=== PATIENT | female | born 1995 | race Caucasian/White ===

== ENCOUNTER → 2016-11-18 | Outpatient (CLI) | payer OTHER ==
--- NOTE | 2016-11-19 08:23 | RAD ---
EXAM DESCRIPTION: Chest,2 Views CLINICAL HISTORY: CHEST PAIN COMPARISON: None available FINDINGS: The cardiomediastinal silhouette is unremarkable. There is no airspace consolidation or pleural effusion. The bronchovascular markings are within normal limits, and the lungs are not hyperinflated. There is no pneumothorax or acute fracture. IMPRESSION: Negative exam. Electronically signed by: Reynold Car MD 11/19/2016 8:22 AM CDT Workstation: [facility]
== END ==
LOC: LAB.O 12:01
PROVIDERS: ATTEND Obstetrics & Gynecology
DX: R07.9 Chest pain, unspecified (principal); O99.013 Anemia complicating pregnancy, third trimester; Z3A.27 27 weeks gestation of pregnancy

== ENCOUNTER 2016-11-19 12:42 | Emergency (ER) | payer OTHER ==
[2016-11-19 13:20] VITALS: TEMP 98.5
[2016-11-19] MEDS ORDERED: POTASSIUM CHLORIDE ELIXIR 20 MEQ/15 ML UD PO ONE (13:46)
[2016-11-19] MEDS ORDERED: MAGNESIUM SULFATE PREMIX 2GM 2 GM in PREMIX BAG 1 BAG IVPB ONE (13:46)
[2016-11-19] MEDS ORDERED: MAGNESIUM SULFATE PREMIX 2GM 50 ML IVPB ONE (13:56)
[2016-11-19] MEDS ORDERED: PANTOPRAZOLE SODIUM TAB 40 MG PO ONE (15:25)
[2016-11-19] MEDS ORDERED: SUCRALFATE 1 GM/10 ML 1 GM UD PO ONE (15:25)
--- NOTE | 2016-11-19 16:29 | ED.PDOC ---
History of Present Illness - General Chief Complaint: Respiratory Problem Stated Complaint: Shortness of breath Time Seen by Provider: 11/19/16 12:52 Source: patient Exam Limitations: no limitations - History of Present Illness Initial Comments: The patient is a 20-year-old female presenting to the emergency room secondary to symptoms of palpitations along with some chest pressure and shortness of breath. The patient has had multiple episodes on the order of around 10 episodes per day for the last few weeks. She does have a history of gastritis as she has had some significant intolerance to her vitamins. The patient was obviously having a fatty attack upon arrival here. The patient had just finished and turned and a Holter monitor and she reports that she did have a few episodes while she was wearing a Holter monitor. No history of any cardiac arrhythmias in the past. No history of mitral valve prolapse. The patient is approximately 7 months according to her. No vaginal bleeding. The child is moving well. No loss of fluids. No fevers. No shortness of breath. She reports that the episodes last anywhere from less than a minute to 10-15 minutes. She does feel short of breath. No syncope but she did almost pass out today according to her. The episode today occurred while she was walking in [facility]. Episodes have occurred while she has been sitting still as well. Her first episode she noted was last January. The episodes have become more frequent. No leg pain. Vital signs are good here except she is in a sinus tachycardia and she is very upset at the moment. She is oxygenating well without supplemental oxygen. Timing/Duration: unsure Severity: moderate Improving Factors: nothing Worsening Factors: nothing Associated Symptoms: chest pain, shortness of breath Allergies/Adverse Reactions: Allergies NO KNOWN ALLERGY Allergy (Verified 11/19/16 13:18) Home Medications: Ambulatory Orders Famotidine 20 mg PO BID #30 tab 11/19/16 Ferrous Sulfate [Iron] 65 mg PO DAILY 11/19/16 Review of Systems - Review of Systems Constitutional: States: no symptoms reported EENTM: States: no symptoms reported Respiratory: States: short of breath Cardiology: States: palpitations Gastrointestinal/Abdominal: States: no symptoms reported Genitourinary: States: no symptoms reported Musculoskeletal: States: no symptoms reported Skin: States: no symptoms reported Neurological: States: anxiety Endocrine: States: no symptoms reported All other Systems: No Change from Baseline Past Medical History (General) - Patient Medical History Hx Stroke: No Hx Asthma: Yes Hx Congestive Heart Failure: No Hx Diabetes: No Hx Cancer: Yes - melanoma Hx Hepatitis C: No Hx MRSA: Yes - Back 2012 MRSA Source:: Wound - Vaccination History Hx Influenza Vaccination: No Hx Pneumococcal Vaccination: No - Social History Hx Tobacco Use: Yes Hx Alcohol Use: Yes Hx Substance Use: No Hx Substance Use Treatment: No Hx Depression: No - Female History Patient is a Female of Child Bearing Age (10 -59 yrs old): Yes Patient : Yes - 7 months Family Medical History - Family History Mother Family History: No Known Living Status: Still Living Physical Exam - Physical Exam General Appearance: Alert, Anxious Eye Exam: bilateral normal Ears, Nose, Throat: hearing grossly normal, normal ENT inspection, normal pharynx Neck: non-tender, full range of motion, supple Respiratory: chest non-tender, lungs clear, normal breath sounds, no respiratory distress, no accessory muscle use Cardiovascular/Chest: normal peripheral pulses, no edema, other - inus tachycardia initially Peripheral Pulses: radial,right: 2+, radial,left: 2+, dorsalis pedis,right: 2+, dorsalis pedis,left: 2+ Gastrointestinal/Abdominal: normal bowel sounds, non tender - ., soft Rectal Exam: deferred Back Exam: normal inspection, no CVA tenderness, no vertebral tenderness Extremity: normal range of motion, non-tender, normal inspection, no pedal edema , no calf tenderness, normal capillary refill Neurologic: kitchen hand II-XII nml as tested, no motor/sensory deficits, alert, oriented x 3, other - he patient presents an anxiety attack Skin Exam: normal color Comments: Vital Signs - 24 hr 11/19/16 11/19/16 11/19/16 12:42 13:18 13:19 Temperature 98.5 F Pulse Rate [ 110 H 86 88 Apical] Respiratory 22 22 22 Rate Blood Pressure 149/100 131/81 123/65 [Left Arm] O2 Sat by Pulse 99 97 95 Oximetry 11/19/16 13:20 Temperature Pulse Rate [ 113 H Apical] Respiratory 22 Rate Blood Pressure 134/89 [Left Arm] O2 Sat by Pulse 97 Oximetry Progress - Progress Progress: 11/19/16 16:32 the patient is a 20-year-old female at approximately 7 months gestational age presenting with symptoms of palpitations. The patient definitely has anxiety and was having an anxiety attack upon arrival. She is starting a medication from her primary care doctor for that today actually. The patient also has a low magnesium level and was given 2 g of magnesium here today. She does need to be followed for this and if this persists she may need to start a supplement. Additionally her potassium was low normal here today. She was given some supplemental potassium here today and this also needs to be followed. The patient needs to keep well-hydrated. Repeat cardiac enzymes are negative at this time. She does have a moderately elevated white blood cell count 18,000. This also needs to be repeated. I do not see any definitive source of infection at this time to warrant antibiotics. She is not septic. It is recommended that the patient stay for telemetry monitoring in case the episodes are actually due to an arrhythmia. She has deferred this at this time. It is possible her symptoms may be coming from gastritis and esophagitis. She will empirically be placed on Pepcid twice daily for 2 weeks only. She does need follow-up with her primary care doctor early next week to obtain the results of her Holter monitor. ER warnings were given for any significant recurrence. - Results/Orders Results/Orders: 11/19/16 13:04 Telemetry .CONTINUOUS normal sinus rhythm to sinus tachycardia Vital Signs-Tilt PRN 11/19/16 13:15 EKG STAT sinus tachycardia at a rate of 101 bpm. Old T-wave inversions in lead 3 and aVF when compared to EKG from 2 years ago. Normal R-wave progression. No short PA or long QT noted. Laboratory Results - last 24 hr 11/19/16 11/19/16 11/19/16 13:15 13:15 13:15 WBC 18.5 H RBC 3.83 L Hgb 11.6 L Hct 33.5 L MCV 87.4 MCH 30.2 MCHC 34.5 RDW 13.3 Plt Count 243 MPV 7.8 Absolute Neuts (auto) 15.50 H Absolute Lymphs (auto) 1.90 Absolute Monos (auto) 0.80 Absolute Eos (auto) 0.20 Absolute Basos (auto) 0.10 Neutrophils % 83.9 H Lymphocytes % 10.4 L Monocytes % 4.5 Eosinophils % 0.8 L Basophils % 0.4 PT 10.5 INR 0.930 PTT (SP) 24.3 L Sodium 137 Potassium 3.5 L Chloride 107 Carbon Dioxide 20 L Anion Gap 13.5 BUN 10 Creatinine 0.81 BUN/Creatinine Ratio 12.3 Random Glucose 124 H Serum Osmolality 274.3 L Calcium 9.4 Magnesium Total Bilirubin 0.4 AST 15 ALT 15 Alkaline Phosphatase 71 L Creatine Kinase 21 L CK-MB (CK-2) 0.5 CK-MB (CK-2) % Not Reportable Troponin I < 0.02 B-Natriuretic Peptide 35.8 Serum Total Protein 6.7 Albumin 3.3 Globulin 3.4 Albumin/Globulin Ratio 1.0 L Amylase 69 Lipase TSH Urine Color Urine Appearance Urine pH Ur Specific [place] Urine Protein Urine Glucose (UA) Urine Ketones Urine Blood Urine Nitrite Urine Bilirubin Urine Urobilinogen Ur Leukocyte Esterase Urine RBC Urine WBC Ur Epithelial Cells Amorphous Sediment Urine Bacteria Urine Mucus Urine Opiates Screen Urine Barbiturates Ur Phencyclidine Scrn U Amphetamin/Meth Scrn U Benzodiazepines Scrn U Cocaine Metab Screen U Cannabinoids Screen 11/19/16 11/19/16 11/19/16 13:15 13:15 13:15 WBC RBC Hgb Hct MCV MCH MCHC RDW Plt Count MPV Absolute Neuts (auto) Absolute Lymphs (auto) Absolute Monos (auto) Absolute Eos (auto) Absolute Basos (auto) Neutrophils % Lymphocytes % Monocytes % Eosinophils % Basophils % PT INR PTT (SP) Sodium Potassium Chloride Carbon Dioxide Anion Gap BUN Creatinine BUN/Creatinine Ratio Random Glucose Serum Osmolality Calcium Magnesium 1.4 L Total Bilirubin AST ALT Alkaline Phosphatase Creatine Kinase CK-MB (CK-2) CK-MB (CK-2) % Troponin I B-Natriuretic Peptide Serum Total Protein Albumin Globulin Albumin/Globulin Ratio Amylase Lipase 14 L TSH 1.11 Urine Color Yellow Urine Appearance Clear Urine pH 7.0 Ur Specific [place] 1.015 Urine Protein Negative Urine Glucose (UA) Negative Urine Ketones Trace Urine Blood Negative Urine Nitrite Negative Urine Bilirubin Negative Urine Urobilinogen 0.2 Ur Leukocyte Esterase Negative Urine RBC 0-1 Urine WBC 1-3 Ur Epithelial Cells 5-10 Amorphous Sediment 1+ Urine Bacteria 1+ Urine Mucus Moderate Urine Opiates Screen Negative Urine Barbiturates Negative Ur Phencyclidine Scrn Negative U Amphetamin/Meth Scrn Negative U Benzodiazepines Scrn Negative U Cocaine Metab Screen Negative U Cannabinoids Screen Negative 11/19/16 15:30 WBC RBC Hgb Hct MCV MCH MCHC RDW Plt Count MPV Absolute Neuts (auto) Absolute Lymphs (auto) Absolute Monos (auto) Absolute Eos (auto) Absolute Basos (auto) Neutrophils % Lymphocytes % Monocytes % Eosinophils % Basophils % PT INR PTT (SP) Sodium Potassium Chloride Carbon Dioxide Anion Gap BUN Creatinine BUN/Creatinine Ratio Random Glucose Serum Osmolality Calcium Magnesium Total Bilirubin AST ALT Alkaline Phosphatase Creatine Kinase 19 L CK-MB (CK-2) 0.5 CK-MB (CK-2) % Not Reportable Troponin I < 0.02 B-Natriuretic Peptide Serum Total Protein Albumin Globulin Albumin/Globulin Ratio Amylase Lipase TSH Urine Color Urine Appearance Urine pH Ur Specific [place] Urine Protein Urine Glucose (UA) Urine Ketones Urine Blood Urine Nitrite Urine Bilirubin Urine Urobilinogen Ur Leukocyte Esterase Urine RBC Urine WBC Ur Epithelial Cells Amorphous Sediment Urine Bacteria Urine Mucus Urine Opiates Screen Urine Barbiturates Ur Phencyclidine Scrn U Amphetamin/Meth Scrn U Benzodiazepines Scrn U Cocaine Metab Screen U Cannabinoids Screen Departure - Departure Clinical Impression: Anxiety attack, Palpitations, Hypomagnesemia Disposition: Left Against Medical Advice Condition: Fair Departure Forms: ED Discharge - Pt. Copy, Patient Portal Self Enrollment Instructions: DI for Anxiety -- Adult Diet: regular diet Activity: increase activity as tolerated Referrals: Jonathan Arrington MD [Primary Care Provider] - 1-5 Days Prescriptions: Famotidine 20 mg PO BID #30 tab Home Medications: Ambulatory Orders Famotidine 20 mg PO BID #30 tab 11/19/16 Ferrous Sulfate [Iron] 65 mg PO DAILY 11/19/16 Additional Instructions: the patient is a 20-year-old female at approximately 7 months gestational age presenting with symptoms of palpitations. The patient definitely has anxiety and was having an anxiety attack upon arrival. She is starting a medication from her primary care doctor for that today actually. The patient also has a low magnesium level and was given 2 g of magnesium here today. She does need to be followed for this and if this persists she may need to start a supplement. Additionally her potassium was low normal here today. She was given some supplemental potassium here today and this also needs to be followed. The patient needs to keep well-hydrated. Repeat cardiac enzymes are negative at this time. She does have a moderately elevated white blood cell count 18,000. This also needs to be repeated. I do not see any definitive source of infection at this time to warrant antibiotics. She is not septic. It is recommended that the patient stay for telemetry monitoring in case the episodes are actually due to an arrhythmia. She has deferred this at this time. It is possible her symptoms may be coming from gastritis and esophagitis. She will empirically be placed on Pepcid twice daily for 2 weeks only. She does need follow-up with her primary care doctor early next week to obtain the results of her Holter monitor. ER warnings were given for any significant recurrence.
[2016-11-19 19:16] VITALS: O2SAT 100
[2016-11-19 19:22] VITALS: BP 126/69
== END 2016-11-19 16:41 | disposition left against medical advice (07) ==
LOC: ER 12:42
DX: F41.0 Panic disorder [episodic paroxysmal anxiety] (principal); R00.2 Palpitations; E83.42 Hypomagnesemia; Z85.820 Personal history of malignant melanoma of skin; Z86.14 Personal history of Methicillin resistant Staphylococcus aureus infection; Z87.891 Personal history of nicotine dependence

== ENCOUNTER 2017-12-04 09:46 | Emergency (ER) | payer OTHER ==
[2017-12-04 10:00] VITALS: TEMP 98.8
[2017-12-04] MEDS ORDERED: ONDANSETRON INJ 4 MG/2 ML VIAL IV ONE (10:09)
[2017-12-04] MEDS ORDERED: SODIUM CHLORIDE 0.9% 1000ML 1,000 ML IVS ONE (10:09)
[2017-12-04] MEDS ORDERED: KETOROLAC TROMETHAMINE INJ 30 MG/ML VIAL IV ONE (10:09)
--- NOTE | 2017-12-04 10:12 | ED.PDOC ---
History of Present Illness - General Chief Complaint: General Time Seen by Provider: 12/04/17 09:59 Source: patient - History of Present Illness Timing/Duration: 1 hour Severity: moderate Improving Factors: rest Worsening Factors: movement, other - standing Associated Symptoms: headaches, nausea/vomiting, other - dizziness, near syncope Allergies/Adverse Reactions: Allergies NO KNOWN ALLERGY Allergy (Verified 12/04/17 10:00) Home Medications: Ambulatory Orders NK [NK] 12/04/17 Review of Systems - Review of Systems Constitutional: States: see HPI, diaphoresis, weakness EENTM: States: no symptoms reported Respiratory: States: no symptoms reported Cardiology: States: no symptoms reported Gastrointestinal/Abdominal: States: abdominal pain, nausea Genitourinary: States: other - currently having menstrual cramps Musculoskeletal: States: no symptoms reported Skin: States: no symptoms reported Neurological: States: see HPI, headache, weakness Endocrine: States: no symptoms reported Hematologic/Lymphatic: States: no symptoms reported Past Medical History (General) - Patient Medical History Hx Stroke: No Hx Asthma: Yes Hx Congestive Heart Failure: No Hx Diabetes: No Hx Cancer: Yes - melanoma Hx Hepatitis C: No Hx MRSA: Yes - Back 2012 MRSA Source:: Wound - Vaccination History Hx Influenza Vaccination: Yes - 2016 Hx Pneumococcal Vaccination: No Immunizations Up to Date: Yes - Social History Hx Tobacco Use: Yes Hx Alcohol Use: No Hx Substance Use: No Hx Substance Use Treatment: No Hx Depression: No - Female History Patient is a Female of Child Bearing Age (10 -59 yrs old): Yes Patient : No Family Medical History - Family History Mother Family History: No Known Living Status: Still Living Physical Exam - Physical Exam General Appearance: Alert, Anxious, No apparent distress Eye Exam: bilateral normal Ears, Nose, Throat: hearing grossly normal, normal pharynx Neck: non-tender, full range of motion, supple Respiratory: chest non-tender, lungs clear, normal breath sounds, no respiratory distress Cardiovascular/Chest: normal peripheral pulses, regular rate, rhythm, no edema Gastrointestinal/Abdominal: normal bowel sounds, non tender, soft Extremity: normal range of motion, non-tender, normal inspection Neurologic: alert, normal mood/affect, oriented x 3 Skin Exam: normal color, warm/dry Lymphatic: no adenopathy Departure - Departure Clinical Impression: Near syncope, Vaso vagal episode Head ache Qualifiers: Headache type: tension-type Headache chronicity pattern: acute headache Intractability: not intractable Qualified Code(s): G44.209 - Tension-type headache, unspecified, not intractable Disposition: Discharge to Home or Self Care Departure Forms: ED Discharge - Pt. Copy, Patient Portal Self Enrollment Referrals: Jonathan Arrington MD [Primary Care Provider] - 1-2 Weeks Home Medications: Ambulatory Orders NK [NK] 12/04/17
[2017-12-04 12:02] VITALS: BP 111/76; O2SAT 98
== END 2017-12-04 11:55 | disposition home or self-care (01) ==
LOC: ER 09:46
DX: R55 Syncope and collapse (principal); R11.2 Nausea with vomiting, unspecified; G44.209 Tension-type headache, unspecified, not intractable; J45.909 Unspecified asthma, uncomplicated; Z87.891 Personal history of nicotine dependence; Z85.820 Personal history of malignant melanoma of skin
CPT/HCPCS: 36415; 80053; 83735; 84703; 85025; J1885; J2405; J7030

== ENCOUNTER 2018-03-14 23:56 | Emergency (ER) | payer OTHER ==
[2018-03-15 00:14] VITALS: TEMP 97.2; O2SAT 100
--- NOTE | 2018-03-15 00:26 | ED.PDOC ---
History of Present Illness - General Chief Complaint: Drug or Alcohol Abuse Stated Complaint: possible overdose Time Seen by Provider: 03/15/18 00:24 Source: patient Exam Limitations: no limitations - History of Present Illness Initial Comments: the patient is a 22-year-old female presenting to the emergency room after having taken 6 mg of Xanax approximately 4-1/2 hours ago and drank a half a bottle of crowns over the course of the day. The patient is a bipolar disorder patient who has recently gone off her medications and is currently undergoing a miscarriage. The patient is adamant that she is taking no other medications today. The patient is very alert and very oriented and in no distress. She is refusing a physical exam and blood work. Vital signs are stable. She does contract for safety. she adamantly denies trying to kill herself. Speech is fluent and she has full recall of events. Timing/Duration: unsure Severity: mild Improving Factors: nothing Worsening Factors: nothing Associated Symptoms: malaise Allergies/Adverse Reactions: Allergies NO KNOWN ALLERGY Allergy (Verified 12/04/17 10:00) Home Medications: Ambulatory Orders NK [NK] 12/04/17 Review of Systems - Review of Systems Constitutional: States: no symptoms reported EENTM: States: no symptoms reported Respiratory: States: no symptoms reported Cardiology: States: no symptoms reported Gastrointestinal/Abdominal: States: no symptoms reported Genitourinary: States: no symptoms reported Musculoskeletal: States: no symptoms reported Skin: States: no symptoms reported Neurological: States: anxiety Endocrine: States: no symptoms reported All other Systems: No Change from Baseline Past Medical History (General) - Patient Medical History Hx Stroke: No Hx Asthma: Yes Hx Congestive Heart Failure: No Hx Diabetes: No Hx Cancer: Yes - melanoma Hx Hepatitis C: No Hx MRSA: Yes - Back 2012 MRSA Source:: Wound Surgical History: no surgical history - Vaccination History Hx Influenza Vaccination: Yes Hx Pneumococcal Vaccination: No - Social History Hx Tobacco Use: Yes Hx Alcohol Use: No Hx Substance Use: No Hx Substance Use Treatment: No Hx Depression: No - Female History Patient : No - denies - Triage Comment ED Triage Comment: Denies complaints, admits to taking numerous xanax earlier and ETOH consumption. But angry that her father brought her in Family Medical History - Family History Mother Family History: No Known Living Status: Still Living Physical Exam - Physical Exam General Appearance: Alert, No apparent distress Eye Exam: bilateral normal Ears, Nose, Throat: hearing grossly normal Respiratory: no respiratory distress, no accessory muscle use Cardiovascular/Chest: no edema Rectal Exam: deferred Extremity: normal range of motion Neurologic: alert, oriented x 3, other - the patient is mildly anxious and moderately depressed. Skin Exam: normal color Comments: Vital Signs - 24 hr 03/15/18 03/15/18 00:10 00:14 Temperature 97.2 F L Pulse Rate [ 108 H 108 H Right] Respiratory 16 Rate Blood Pressure 129/80 [Right Arm] O2 Sat by Pulse 100 Oximetry Progress - Progress Progress: 03/15/18 00:28 the patient is a 22-year-old female brought in by her father due to concern for taking too many of her Xanax withalcohol. The patient took the Xanax about 4&1/2 hours ago. She has not had any more alcohol in the last 3 hours. There is no evidence of any respiratory depression or vital sign instability. She is alert and oriented. She is refusing any further workup monitoring or exam. She adamantly denies trying to kill herself. She does report that she is currently having a very early miscarriage but does not want any medical care for at this time. she does contract for safety. The patient is capable of medical decision making at this time. she needs to follow back up with her primary care doctor and get restarted on her bipolar medications. The patient is leaving AGAINST MEDICAL ADVICE. Departure - Departure Clinical Impression: Alcohol abuse, Prescription drug abuse Disposition: Left Against Medical Advice Condition: Fair Departure Forms: ED Discharge - Pt. Copy, Patient Portal Self Enrollment Instructions: DI for Alcohol Abuse and Alcoholism, DI for Drug Abuse and Drug Addiction Diet: regular diet Activity: increase activity as tolerated Referrals: Jonathan Arrington MD [Primary Care Provider] - 1-2 Days Home Medications: Ambulatory Orders NK [NK] 12/04/17
[2018-03-15 00:54] VITALS: BP 128/80
== END 2018-03-15 00:44 | disposition left against medical advice (07) ==
LOC: ER 23:56
DX: F13.10 Sedative, hypnotic or anxiolytic abuse, uncomplicated (principal); F10.10 Alcohol abuse, uncomplicated; F31.9 Bipolar disorder, unspecified; J45.909 Unspecified asthma, uncomplicated; Z53.29 Procedure and treatment not carried out because of patient's decision for other reasons; Z87.891 Personal history of nicotine dependence; Z85.820 Personal history of malignant melanoma of skin